=== PATIENT | female | born 1950 | race Caucasian/White ===

== ENCOUNTER 2021-01-11 09:42 | Emergency (ER) | payer MEDICARE ==
[2021-01-11 21:29] LABS: SARS-CoV-2 PCR by NAA DETECTED (NotDetected)
== END 2021-01-11 10:31 | disposition home or self-care (01) ==
LOC: BURERS 09:42
DX: U07.1 COVID-19 (principal); I10 Essential (primary) hypertension
CPT/HCPCS: U0003; U0005; 99283